=== PATIENT | male | born 1965 | race Caucasian/White ===

== ENCOUNTER 2021-08-01 15:46 | Emergency (ER) | payer OTHER | END 2021-08-01 19:31 | disposition home or self-care (01) | LOC: ED 15:46 → EDBD 15:46 → ED 19:31 | DX: M62.838 Other muscle spasm (principal); V49.9XXA Car occupant (driver) (passenger) injured in unspecified traffic accident, initial encounter | CPT/HCPCS: 36415; 70450; 72125; 80053; 82150; 82553; 83690; 85025; 86850; 86900; 86901; 99284-25; A9270; G0480 ==